=== PATIENT | male | born 1965 | race Two or more races ===

== ENCOUNTER 2020-07-30 04:34 | Day surgery (SDC) | payer OTHER ==
[2020-07-27 14:42] VITALS: BMI 22.4
[2020-07-30] MEDS ORDERED: MIDAZOLAM HCL 2 MG/2 ML SINGLE DOSE VIAL ONE (13:15)
[2020-07-30 15:37] VITALS: BP 144/92; PULSE 61; TEMP 97.5
--- NOTE | 2020-07-30 16:14 | OP ---
Operative Note - Note: Operative Date: 07/30/20 Pre-Operative Diagnosis: Left renal stone Operation: Left ESWL Findings: 5 mm lower pole Left renal stone Post-Operative Diagnosis: Same as Pre-op Surgeon: Osbaldo Chapa Anesthesia: Regional Estimated Blood Loss (mls): 0 Operative Report Dictated: Yes
--- NOTE | 2020-07-30 19:28 | OP ---
DATE OF OPERATION: 07/30/2020 PREOPERATIVE DIAGNOSIS: Left renal stone . POSTOPERATIVE DIAGNOSIS: Left renal stone. PROCEDURE: Left extracorporeal shockwave lithotripsy. ATTENDING: Adrien Chapa M.D. ANESTHESIA: Fractional. DESCRIPTION OF PROCEDURE: Patient was brought in the operating room, placed in a supine position on the operating room table. Ultrasonography and fluoroscopy were performed. A left lower pole 5-mm stone was identified. Anesthesia and preoperative antibiotics were then administered. Shockwave lithotripsy was then started. 2500 impulses at 17 joules of power were administered to the stone under realtime ultrasonography and fluoroscopy. No complications were noted. The patient tolerated the procedure very well. ADRIEN MAYORGA M.D. [id number]
== END 2020-07-30 15:55 | disposition home or self-care (01) ==
LOC: JASU-SURG 04:34
PROVIDERS: ATTEND Urology
PROC: 0TF4XZZ Fragmentation in Left Kidney Pelvis, External Approach (ICD-10-PCS; principal; 2020-07-30 13:00)
DX: N20.0 Calculus of kidney (principal)

== ENCOUNTER → 2020-09-24 | Day surgery (SDC) | payer OTHER | END | disposition home or self-care (01) | LOC: JASU-SURG 06:06 | PROVIDERS: ATTEND Urology | DX: Z53.8 Procedure and treatment not carried out for other reasons (principal) ==